=== PATIENT | male | born 1980 | race Hispanic/Latino ===

== ENCOUNTER 2022-04-06 14:49 | Inpatient (IN) | payer BC ==
[~2022-04-06] VITALS: Ht 175.3 cm; Wt 105.3 kg
[2022-04-06 15:40] LABS: BASOPHILS # (AUTO) 0.1 (0.0-0.1); BASOPHILS % 1.4 % (0.0-1.0); EOSINOPHILS # (AUTO) 0.8 (0.0-0.4); EOSINOPHILS % 9.6 % (0.0-6.0); HEMATOCRIT 43.4 % (38.2-49.6); HEMOGLOBIN 13.5 g/dL (14.0-18.0); LYMPHOCYTES # (AUTO) 2.1 (1.0-3.2); LYMPHOCYTES % 24.6 % (18.0-39.1); MEAN CORPUSCULAR HEMOGLOBIN 28.2 pg (28-32); MEAN CORPUSCULAR HGB CONC 31.1 g/dL (31-35); MEAN CORPUSCULAR VOLUME 90.6 fL (81-99); MONOCYTES # (AUTO) 0.7 (0.2-0.8); MONOCYTES % 7.8 % (4.4-11.3); NEUTROPHILS # (AUTO) 4.7 (2.1-6.9); NEUTROPHILS % 54.7 % (38.7-80.0); PLATELET COUNT 309 x10e3/uL (140-360); RED BLOOD COUNT 4.79 x10e6/uL (4.3-5.7); RED CELL DISTRIBUTION WIDTH 12.6 % (11.7-14.4)
[2022-04-06 15:55] LABS: CALCIUM 8.9 mg/dL (8.4-10.2)
[2022-04-06 16:32] LABS: ALBUMIN 3.4 g/dL (3.5-5.0); ALBUMIN/GLOBULIN RATIO 0.9 (0.8-2.0); CREATININE, SERUM 0.98 mg/dL (0.72-1.25)
[2022-04-06] MEDS ORDERED: SODIUM CHLORIDE FLUSH 10 ML SYR INJ PRN (18:00)
[2022-04-06] MEDS ORDERED: ONDANSETRON HCL INJ 2MG/ML 2ML 2 MG/ML VIAL IV PRN (18:00)
[2022-04-06] MEDS ORDERED: ASPIRIN 81 MG CHEW TAB PO ONE (18:00)
[2022-04-06 20:20] VITALS: BP 151/92
[2022-04-06 21:00] VITALS: BP 138/84
[2022-04-07] VITALS (7 sets, daily range): BP systolic 135–149; BP diastolic 76–91
[2022-04-07] MEDS ORDERED: SUBOXONE 8 MG-1 EAC2 PO (05:09)
[2022-04-07] MEDS ORDERED: ONDANSETRON HCL INJ 2MG/ML 2ML 2 MG/ML VIAL IV PRN (07:30)
[2022-04-07] MEDS ORDERED: LORAZEPAM 1 MG TAB PO PRN (07:30)
[2022-04-07 11:39] LABS: CREATINE KINASE MB 2.5 ng/mL (0-5.0)
== END 2022-04-07 21:02 | disposition home or self-care (01) | DRG 291 ==
LOC: ER 15:17 → ERHOLD 17:50 → MED/SURG3 20:47
PROVIDERS: ADMIT Internal Medicine; ATTEND Internal Medicine
DX: I11.0 Hypertensive heart disease with heart failure (principal); I50.31 Acute diastolic (congestive) heart failure; F19.10 Other psychoactive substance abuse, uncomplicated; R60.0 Localized edema; Z72.0 Tobacco use; Z20.822 Contact with and (suspected) exposure to COVID-19; E66.9 Obesity, unspecified; Z68.34 Body mass index [BMI] 34.0-34.9, adult
CPT/HCPCS: 36415; 71045; 80053; 82550; 82553; 83880; 84484; 85025; 93005; 93306; 93970; 99284